=== PATIENT | female | born 1985 | race Caucasian/White ===

== ENCOUNTER → 2019-10-13 | Outpatient (CLI) | payer OTHER ==
--- NOTE | 2019-10-13 15:20 | Diagnostic Imaging Report ---
INDICATION: Patient reports recently passing blood clots and parts several days earlier. FINDINGS: The uterus measures 11.0 x 7.4 x 6.0 cm. Endometrium is abnormally thickened and heterogeneous measuring up to 17 mm in thickness. No gestational sac is seen. Patient does have an IUD which is low in position in the lower uterine segment near the internal cervical os. No significant vascularity to the endometrium is seen. Right ovary measures 3.1 x 1.7 x 1.8 cm, and the left ovary measures 2.7 x 2.1 x 1.7 cm. No adnexal mass or free fluid is seen. IMPRESSION: 1. Low-lying IUD, in the region of the lower uterine segment and internal cervical os. 2. Abnormally thickened and heterogeneous endometrium, likely containing blood products. No vascularized evidence of retained product of conception is seen. There is no evidence of intrauterine gestational sac. Dictated by: Dictated on workstation # [id number]
== END ==
LOC: RAD 13:25
PROVIDERS: ATTEND Nurse Practitioner Family
DX: O03.9 Complete or unspecified spontaneous abortion without complication (principal); T83.31XA Breakdown (mechanical) of intrauterine contraceptive device, initial encounter
CPT/HCPCS: 76801; 76817